=== PATIENT | male | born 1995 | race Asian ===

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

== ENCOUNTER 2018-01-05 05:01 | Emergency (ER) | payer OTHER ==
[~2018-01-05] VITALS: Ht 182.9 cm; Wt 80.0 kg
[2018-01-05 05:05] VITALS: Ht 182.9 cm; Wt 80.0 kg
[2018-01-05] MEDS ORDERED: ONDANSETRON INJ 2 MG/ML 2 ML VIAL IV STA (05:15)
[2018-01-05] MEDS ORDERED: SODIUM CHLORIDE 0.9% 1000ML 2,000 ML IV STA (05:15)
[2018-01-05] MEDS ORDERED: DICYCLOMINE HCL 10 MG/ML 2 ML AMP IM ONE (05:15)
[2018-01-05 05:52] LABS: BASO % 0.2 %; BASO ABS # 0.02 K/uL (0-0.2); EOS % 0.7 %; EOS ABS # 0.08 K/uL (0-0.5); HEMATOCRIT 48.2 % (42-52); HEMOGLOBIN 17.6 g/dL (14.0-18.0); IG# 0.04 K/uL (0.00-0.02); LYMPH % 12.2 %; LYMPH ABS # 1.46 K/uL (1.2-3.4); MEAN CELL VOLUME 83.8 fL (80-100); MEAN CORPUSCULAR HEMOGLOBIN 30.6 pg (25-34); MEAN CORPUSCULAR HGB CONC 36.5 g/dl (32-36); MEAN PLATELET VOLUME 8.7 fL (7.4-10.4); MONO ABS # 0.72 K/uL (0.11-0.59); NEUT % 80.6 %; NEUT ABS # 9.68 K/uL (1.4-6.5); PLATELET COUNT 231 K/uL (130-400); RED CELL DISTRIBUTION WIDTH CV 11.8 % (11.5-14.5); RED CELL DISTRIBUTION WIDTH SD 35.9 fL (36.4-46.3)
[2018-01-05] MEDS ORDERED: KETOROLAC TROMETHAMINE 30 MG/ML VIAL IV STA (06:01)
[2018-01-05 06:08] LABS: ALBUMIN 4.5 gm/dl (3.4-5.0); ALT/SGPT 31 U/L (12-78); AST/SGOT 17 U/L (15-37); BLOOD UREA NITROGEN 12 mg/dl (7-18); CALCIUM 8.8 mg/dl (8.5-10.1); CARBON DIOXIDE 27 mmol/L (21-32); CREATININE 1.05 mg/dl (0.60-1.40); GLUCOSE 107 mg/dl (70-99); POTASSIUM 3.8 mmol/L (3.5-5.1); SODIUM 137 mmol/L (136-145)
[2018-01-05 06:11] LABS: ALKALINE PHOSPHATASE 58 U/L (45-117); TOTAL PROTEIN 8.3 gm/dl (6.4-8.2)
[2018-01-05] MEDS ORDERED: DiphenhydrAMINE HCL 50 MG/ML VIAL IV STA (06:14)
[2018-01-05] MEDS ORDERED: METOCLOPRAMIDE HCL INJ 5 MG/ML 2 ML VIAL IV STA (06:14)
[2018-01-05] MEDS ORDERED: ONDANSETRON HOME PACK 4MG OD TAB PO ONE (06:45)
--- NOTE | 2018-01-05 08:51 | EMERGENCY ROOM VISIT NOTE ---
ED Visit Note First contact with patient: 08:18 I received sign out from Janee Plummer PA-C at change of shift. Pt presented with vomiting. He received IV fluids and Zofran. His labs were unremarkable. I evaluated the patient, he states that he is feeling much better, his nausea has subsided and he denies any abdominal pain or other complaints. He feels well to go home. He was educated on continued management at home, follow-up, and return precautions, he verbalized understanding. Current/Historical Medications No Active Prescriptions or Reported Meds Allergies Coded Allergies: No Known Allergies (Unverified , 01/05/18) Vital Signs Date Time Temp Pulse Resp B/P (MAP) Pulse Ox O2 Delivery O2 Flow Rate FiO2 01/05/18 09:01 36.9 86 18 135/84 96 Room Air 01/05/18 06:32 84 18 123/82 99 Room Air 01/05/18 05:05 36.3 88 20 112/73 98 Room Air Laboratory Results 01/05/18 05:25 Red Blood Count 5.75, Mean Corpuscular Volume 83.8, Mean Corpuscular Hemoglobin 30.6, Mean Corpuscular Hemoglobin Concent 36.5, Mean Platelet Volume 8.7, Neutrophils (%) (Auto) 80.6, Lymphocytes (%) (Auto) 12.2, Monocytes (%) (Auto) 6.0, Eosinophils (%) (Auto) 0.7, Basophils (%) (Auto) 0.2, Neutrophils # (Auto) 9.68, Lymphocytes # (Auto) 1.46, Monocytes # (Auto) 0.72, Eosinophils # (Auto) 0.08, Basophils # (Auto) 0.02 01/05/18 05:25 Test 01/05/18 05:25 White Blood Count 12.00 K/uL (4.8-10.8) Red Blood Count 5.75 M/uL (4.7-6.1) Hemoglobin 17.6 g/dL (14.0-18.0) Hematocrit 48.2 % (42-52) Mean Corpuscular Volume 83.8 fL (80-100) Mean Corpuscular Hemoglobin 30.6 pg (25-34) Mean Corpuscular Hemoglobin Concent 36.5 g/dl (32-36) Platelet Count 231 K/uL (130-400) Mean Platelet Volume 8.7 fL (7.4-10.4) Neutrophils (%) (Auto) 80.6 % Lymphocytes (%) (Auto) 12.2 % Monocytes (%) (Auto) 6.0 % Eosinophils (%) (Auto) 0.7 % Basophils (%) (Auto) 0.2 % Neutrophils # (Auto) 9.68 K/uL (1.4-6.5) Lymphocytes # (Auto) 1.46 K/uL (1.2-3.4) Monocytes # (Auto) 0.72 K/uL (0.11-0.59) Eosinophils # (Auto) 0.08 K/uL (0-0.5) Basophils # (Auto) 0.02 K/uL (0-0.2) RDW Standard Deviation 35.9 fL (36.4-46.3) RDW Coefficient of Variation 11.8 % (11.5-14.5) Immature Granulocyte % (Auto) 0.3 % Immature Granulocyte # (Auto) 0.04 K/uL (0.00-0.02) Anion Gap 7.0 mmol/L (3-11) Est Creatinine Clear Calc Drug Dose 123.2 ml/min Estimated GFR () 117.9 Estimated GFR (Non- 101.7 BUN/Creatinine Ratio 11.6 (10-20) Calcium Level 8.8 mg/dl (8.5-10.1) Total Bilirubin 0.3 mg/dl (0.2-1) Direct Bilirubin < 0.1 mg/dl (0-0.2) Aspartate Amino Transf (AST/SGOT) 17 U/L (15-37) Alanine Aminotransferase (ALT/SGPT) 31 U/L (12-78) Alkaline Phosphatase 58 U/L (45-117) Total Protein 8.3 gm/dl (6.4-8.2) Albumin 4.5 gm/dl (3.4-5.0) Medications Administered Medications (Trade) Dose Ordered Sig/Candelario Route Start Time Stop Time Status Last Admin Dose Admin Sodium Chloride 2,000 ml @ 999 mls/hr Q2H1M STAT IV 01/05/18 05:15 01/05/18 07:15 DC 01/05/18 05:40 999 MLS/HR Ondansetron HCl (Zofran Inj) 4 mg NOW STAT IV 01/05/18 05:15 01/05/18 05:16 DC 01/05/18 05:40 4 MG Dicyclomine HCl (Bentyl Inj) 20 mg NOW ONCE IM 01/05/18 05:15 01/05/18 05:16 DC 01/05/18 05:40 20 MG Ketorolac Tromethamine (Toradol Inj) 10 mg NOW STAT IV 01/05/18 06:01 01/05/18 06:04 DC 01/05/18 06:24 10 MG Metoclopramide HCl (Reglan Inj) 10 mg NOW STAT IV 01/05/18 06:14 01/05/18 06:15 DC 01/05/18 06:24 10 MG Diphenhydramine HCl (Benadryl Inj) 12.5 mg NOW STAT IV 01/05/18 06:14 01/05/18 06:15 DC 01/05/18 06:24 12.5 MG Ondansetron HCl (ZOFRAN ODT 4MG Home Pack) 1 homepack UD ONCE PO 01/05/18 06:45 01/05/18 06:46 DC 01/05/18 07:06 1 HOMEPACK Departure Information Impression Primary Impression: Vomiting Dispostion Home / Self-Care Condition GOOD Prescriptions No Active Prescriptions or Reported Meds Forms HOME CARE DOCUMENTATION FORM, IMPORTANT VISIT INFORMATION Patient Instructions Vomiting - [facility] Additional Instructions DO NOT drive, drink alcohol, operate machinery, or perform dangerous activities today. You were given medications in the ER that can affect your ability to safely function or operate a vehicle. Zofran(odansetron) tablets 4mg: Take one and allow it to dissolve in your mouth every four to six hours as needed for nausea or vomiting. Rest and drink plenty of fluids as tolerated. Slow sips of water or sports drinks are recommended instead of large amounts all at once. Continue current medications. Once your stomach is settled start with a clear liquid diet (jello, soup broth, etc.) and then advance as tolerated. You should avoid full, heavy meals for about 24 hrs from the time your symptoms resolved. Return to the ER for persistent vomiting, fevers, abdominal pain, chest pains, difficulty breathing, black or bloody stools, worsening of your condition, or as needed. Follow up with your primary physician/health services in 2-3 days for a recheck of your current condition.
[2018-01-05 09:01] VITALS: BP 135/84; PULSE 86; TEMP 36.9; O2SAT 96
--- NOTE | 2018-01-06 04:57 | EMERGENCY ROOM VISIT NOTE ---
History First contact with patient: 05:09 Chief Complaint: ABDOMINAL PAIN Stated Complaint: STOMACH PAIN History of Present Illness The patient is a 22 year old male who presents to the Emergency Room with complaints of nausea vomiting abdominal cramping for the past few hours. Patient thinks he might ate something bad. Patient denies chest pain, dyspnea, fever, chills, cough, congestion, diarrhea, back pain, urinary symptoms. No sick contacts. He is a [employer] student. Review of Systems An 10 system review of systems was completed with positives and pertinent negatives listed in the HPI. Past Medical/Surgical History None Social History Smoking Status: Never Smoker Smokeless Tobacco Use: No Alcohol Use: none Drug Use: none Occupation Status: [employer] student Current/Historical Medications No Active Prescriptions or Reported Meds Physical Exam Vital Signs Date Time Temp Pulse Resp B/P (MAP) Pulse Ox O2 Delivery O2 Flow Rate FiO2 01/05/18 09:01 36.9 86 18 135/84 96 Room Air 01/05/18 06:32 84 18 123/82 99 Room Air 01/05/18 05:05 36.3 88 20 112/73 98 Room Air Physical Exam VITALS: Vitals are noted on the nurse's note and reviewed by myself. Vital signs stable. GENERAL: Pleasant male, in no acute distress, nondiaphoretic, well-developed well-nourished. SKIN: The skin was without rashes, erythema, edema, or bruising. There is no tenting of the skin. Capillary reflex less than 2 seconds. HEAD: Normocephalic atraumatic. EARS: External auditory canals clear, tympanic membranes pearly canales without erythema or effusion bilaterally. EYES: Pupils equal round and reactive to light and accommodation. Conjunctivae without injection, sclerae without icterus. Extraocular movements intact. NOSE: Patent, turbinates without inflammation or discharge. MOUTH: Mucous membranes mildly dr.y pharynx without erythema or exudate. Uvula midline. Airway patent. Tongue does not deviate. NECK: Supple without nuchal rigidity. No lymphadenopathy. No thyromegaly. Cervical spine is nontender. No JVD. HEART: Regular rate and rhythm without murmurs gallops or rubs. LUNGS: Clear to auscultation bilaterally without wheezes, rales or rhonchi. No retractions or accessory muscle use. ABDOMEN: Positive bowel sounds x 4. Normal tympanic percussion. Soft, mild diffuse generalized tenderness without localized pain, without masses or organomegaly. Ross sign negative. No guarding or rebound tenderness. No CVA tenderness MUSCULOSKELETAL: No muscle atrophy, erythema, or edema noted. NEURO: Patient was alert and oriented to person place and time. Normal sensation to light and sharp touch. No focal neurological deficits. Medical Decision & Procedures Laboratory Results 01/05/18 05:25 Red Blood Count 5.75, Mean Corpuscular Volume 83.8, Mean Corpuscular Hemoglobin 30.6, Mean Corpuscular Hemoglobin Concent 36.5, Mean Platelet Volume 8.7, Neutrophils (%) (Auto) 80.6, Lymphocytes (%) (Auto) 12.2, Monocytes (%) (Auto) 6.0, Eosinophils (%) (Auto) 0.7, Basophils (%) (Auto) 0.2, Neutrophils # (Auto) 9.68, Lymphocytes # (Auto) 1.46, Monocytes # (Auto) 0.72, Eosinophils # (Auto) 0.08, Basophils # (Auto) 0.02 01/05/18 05:25 Test 01/05/18 05:25 White Blood Count 12.00 K/uL (4.8-10.8) Red Blood Count 5.75 M/uL (4.7-6.1) Hemoglobin 17.6 g/dL (14.0-18.0) Hematocrit 48.2 % (42-52) Mean Corpuscular Volume 83.8 fL (80-100) Mean Corpuscular Hemoglobin 30.6 pg (25-34) Mean Corpuscular Hemoglobin Concent 36.5 g/dl (32-36) Platelet Count 231 K/uL (130-400) Mean Platelet Volume 8.7 fL (7.4-10.4) Neutrophils (%) (Auto) 80.6 % Lymphocytes (%) (Auto) 12.2 % Monocytes (%) (Auto) 6.0 % Eosinophils (%) (Auto) 0.7 % Basophils (%) (Auto) 0.2 % Neutrophils # (Auto) 9.68 K/uL (1.4-6.5) Lymphocytes # (Auto) 1.46 K/uL (1.2-3.4) Monocytes # (Auto) 0.72 K/uL (0.11-0.59) Eosinophils # (Auto) 0.08 K/uL (0-0.5) Basophils # (Auto) 0.02 K/uL (0-0.2) RDW Standard Deviation 35.9 fL (36.4-46.3) RDW Coefficient of Variation 11.8 % (11.5-14.5) Immature Granulocyte % (Auto) 0.3 % Immature Granulocyte # (Auto) 0.04 K/uL (0.00-0.02) Anion Gap 7.0 mmol/L (3-11) Est Creatinine Clear Calc Drug Dose 123.2 ml/min Estimated GFR () 117.9 Estimated GFR (Non- 101.7 BUN/Creatinine Ratio 11.6 (10-20) Calcium Level 8.8 mg/dl (8.5-10.1) Total Bilirubin 0.3 mg/dl (0.2-1) Direct Bilirubin < 0.1 mg/dl (0-0.2) Aspartate Amino Transf (AST/SGOT) 17 U/L (15-37) Alanine Aminotransferase (ALT/SGPT) 31 U/L (12-78) Alkaline Phosphatase 58 U/L (45-117) Total Protein 8.3 gm/dl (6.4-8.2) Albumin 4.5 gm/dl (3.4-5.0) Medications Administered Medications (Trade) Dose Ordered Sig/Candelario Route Start Time Stop Time Status Last Admin Dose Admin Sodium Chloride 2,000 ml @ 999 mls/hr Q2H1M STAT IV 01/05/18 05:15 01/05/18 07:15 DC 01/05/18 05:40 999 MLS/HR Ondansetron HCl (Zofran Inj) 4 mg NOW STAT IV 01/05/18 05:15 01/05/18 05:16 DC 01/05/18 05:40 4 MG Dicyclomine HCl (Bentyl Inj) 20 mg NOW ONCE IM 01/05/18 05:15 01/05/18 05:16 DC 01/05/18 05:40 20 MG Ketorolac Tromethamine (Toradol Inj) 10 mg NOW STAT IV 01/05/18 06:01 01/05/18 06:04 DC 01/05/18 06:24 10 MG Metoclopramide HCl (Reglan Inj) 10 mg NOW STAT IV 01/05/18 06:14 01/05/18 06:15 DC 01/05/18 06:24 10 MG Diphenhydramine HCl (Benadryl Inj) 12.5 mg NOW STAT IV 01/05/18 06:14 01/05/18 06:15 DC 01/05/18 06:24 12.5 MG Ondansetron HCl (ZOFRAN ODT 4MG Home Pack) 1 homepack UD ONCE PO 01/05/18 06:45 01/05/18 06:46 DC 01/05/18 07:06 1 HOMEPACK ED Course Prior records/ancillary studies reviewed. Triage Nursing notes reviewed. The patient's history was concerning for nausea, vomiting, and abdominal pain. Differential diagnosis: Etiologies such as gastroenteritis, food borne illness, infections, appendicitis , diverticulitis, inflammatory bowel disease, obstruction, GI bleed, biliary pathology, as well as others were entertained. Physical examination findings: As above. Abdominal examination revealed no localized tenderness. Vital signs reviewed and revealed stable. ER treatment provided: IV hydration 2 L NSS. Olvin Garcia On reassessment the patient felt better. Patient was tolerating p.o. intake. Diagnostics interpretation by me: The labs revealed mild leukocytosis, most likely marginalization from vomiting. Mild hyperglycemia without DKA This appears to be consistent with nausea vomiting most likely viral etiology. Patient felt much better after being medicated as above. He did not have acute abdomen. He is tolerating fluids. He was advised to do clear liquid diet today and progress as tolerated to bland diet tomorrow. He was advised to follow-up health services in a few days here in the ER sooner for abdominal pain , fevers, vomiting, worsening signs or symptoms or as needed.. By the evaluation outlined above emergent etiologies such as appendicitis, diverticulitis, obstruction, cardiac sources, mesenteric ischemia, aortic pathology, inflammatory bowel disease, renal colic, PUD, biliary pathology, UTI , as well as others were deemed relatively unlikely. The pt informed about the findings as listed above. All questions were answered and pleased with the treatment. Return instructions were outlined and the patient was discharged in stable condition. Outpatient prescription management: Zofran Referral: The patient was referred to their primary care physician/health services for follow-up in 2 to 3 days for a recheck of the current condition. The chart was completed utilizing [employer] Speech voice recognition software. Grammatical errors, random word insertions, pronoun errors, and incomplete sentences are an occassional consequence of this system due to software limitations, ambient noise, and hardware issues. Any formal questions or concerns about the content, text, or information contained within the body of this dictation should be directly addressed to the physician public health assistant for clarification. Medical Decision As above Medication Reconcilliation Current Medication List: was personally reviewed by me Blood Pressure Screening Patient's blood pressure: Normal blood pressure Impression Primary Impression: Nausea & vomiting Departure Information Dispostion Home / Self-Care Condition GOOD Prescriptions No Active Prescriptions or Reported Meds Referrals No Doctor, Assigned (PCP) Patient Instructions My [facility] Additional Instructions DO NOT drive, drink alcohol, operate machinery, or perform dangerous activities today. You were given medications in the ER that can affect your ability to safely function or operate a vehicle. Zofran(odansetron) tablets 4mg: Take one and allow it to dissolve in your mouth every four to six hours as needed for nausea or vomiting. Rest and drink plenty of fluids as tolerated. Slow sips of water or sports drinks are recommended instead of large amounts all at once. Continue current medications. Once your stomach is settled start with a clear liquid diet (jello, soup broth, etc.) and then advance as tolerated. You should avoid full, heavy meals for about 24 hrs from the time your symptoms resolved. Return to the ER for persistent vomiting, fevers, abdominal pain, chest pains, difficulty breathing, black or bloody stools, worsening of your condition, or as needed. Follow up with your primary physician/health services in 2-3 days for a recheck of your current condition. Problem Qualifiers Primary Impression: Nausea & vomiting Vomiting type: unspecified Vomiting Intractability: non-intractable Qualified Codes: R11.2 - Nausea with vomiting, unspecified
== END 2018-01-05 09:04 | disposition home or self-care (01) ==
LOC: C.EDB 05:03 → C.EDA 09:04
DX: R11.2 Nausea with vomiting, unspecified (principal)